=== PATIENT | female | born 2000 | race Caucasian/White ===

== ENCOUNTER 2022-10-07 17:35 | Outpatient (CLI) | payer OTHER, SELFPAY ==
[2022-10-07 18:28] LABS: Basophils Percent Auto 0.2 % (0.2-1.2); Eosinophils Absolute Auto 0.1 K/mm3 (0-0.3); Eosinophils Percent Auto 0.8 % (0-4.4); Hematocrit 35.5 % (37.0-47.0); Hemoglobin 11.7 g/dL (12.0-15.0); Immature Granulocyte Absolute 0.01 K/mm3 (0.00-0.031); Immature Granulocyte Percent A 0.1 % (0-0.5); Immature Platelet Fraction Pct 14.6 % (0.9-11.2); Lymphocytes Absolute Auto 1.67 K/mm3 (0.9-3.2); Lymphocytes Percent Auto 18.5 % (18.3-44.2); Mean Corpuscular Hemoglobin 28.5 pg (26-34); Mean Corpuscular Volume 86.6 fl (80-100); Mean Platelet Volume 12.7 fl (7.4-10.4); Monocytes Absolute Auto 0.4 K/mm3 (0.1-0.6); Monocytes Percent Auto 4.1 % (2.6-8.5); Neutrophils Absolute Auto 6.9 K/mm3 (1.3-6.7); Neutrophils Percent Auto 76.3 % (45.5-73.1); Platelet Count Result 244 k/mm3 (150-375)
[2022-10-07 19:10] LABS: HIV 1/2 Ab P24 Ag Result Negative (Negative)
[2022-10-07 19:22] LABS: Rubella IgG Antibody 7.4 IU/ML
[2022-10-07 19:32] LABS: Ovalocytes 1+ (NORMAL); Platelet Estimate Adequate (Adequate); Schistocytes None Seen (NORMAL)
[2022-10-09 14:00] LABS: Rapid Plasma Reagin Non-Reactive (NonReactive)
[2022-10-13 15:20] LABS: CMV IgG Antibody <0.60 U/mL (<0.60)
== END 2022-10-07 17:36 | disposition home or self-care (01) ==
LOC: ANHLAB 17:37
PROVIDERS: PCP Pediatrics; Visit Provider Student in an Organized Health Care Education/Training Program
DX: N94.89 Other specified conditions associated with female genital organs and menstrual cycle (principal)
CPT/HCPCS: 36415; 84702; 85025; 85055; 86592; 86644; 86703; 86747; 86762; 86787; 86850; 86900; 86901; 87077; 87086; 87088; G0432

== ENCOUNTER 2022-12-08 18:13 | Inpatient (IN) | payer OTHER, SELFPAY ==
[2022-12-08] VITALS (34 sets, daily range): BP systolic 101–115; BP diastolic 58–75; PULSE 45–160; TEMP 36.2–36.6; O2SAT 86–100; BMI 28.3
--- NOTE | ~2022-12-08 | US_ITS ---
EXAMINATION: US OB limited DATE: 12/08/2022 19:22 INDICATION: Assess viability. demise TECHNIQUE: Real-time ultrasound of the pelvis was performed. COMPARISON: None. FINDINGS: There is a single fetus in vertex presentation, longitudinal lie. The placenta is anterior. Cervix n ot confidently visualized. No heart motion detected. The amniotic fluid index is subjectively l ow. IMPRESSION: No heart motion detected, consistent with demise. Reviewed, dictated and finalized at location K.
[2022-12-08 20:09] LABS: Basophils Percent Auto 0.1 % (0.2-1.2); Eosinophils Percent Auto 0.1 % (0-4.4); Hemoglobin 11.2 g/dL (12.0-15.0); Immature Granulocyte Absolute 0.04 K/mm3 (0.00-0.031); Immature Granulocyte Percent A 0.3 % (0-0.5); Lymphocytes Absolute Auto 1.75 K/mm3 (0.9-3.2); Lymphocytes Percent Auto 12.7 % (18.3-44.2); Mean Corpuscular HGB Conc 32.9 g/dl (32-36); Mean Corpuscular Hemoglobin 28.9 pg (26-34); Mean Corpuscular Volume 87.9 fl (80-100); Mean Platelet Volume 11.9 fl (7.4-10.4); Monocytes Absolute Auto 0.6 K/mm3 (0.1-0.6); Monocytes Percent Auto 4.3 % (2.6-8.5); Neutrophils Absolute Auto 11.4 K/mm3 (1.3-6.7); Neutrophils Percent Auto 82.5 % (45.5-73.1); Platelet Count Result 338 k/mm3 (150-375); Red Blood Count 3.87 M/mm3 (4.2-5.4); Red Cell Distribution Width 13.2 % (11.5-14.5); White Blood Count 13.8 K/mm3 (4.5-10.0)
[2022-12-08 21:13] LABS: Free T4 Free Thyroxine 1.13 ng/mL (0.78-2.19)
[2022-12-08] MEDS: miSOPROStol 200 MCG TABLET 600 MCG VAGINAL (21:13)
[2022-12-08 21:26] LABS: Rubella IgG Antibody 5.9 IU/ML
[2022-12-08] MEDS: fentaNYL CITRATE INJ (*CRX) 100 MCG/2 ML VIAL 50 MCG IV PUSH (23:18)
[2022-12-08 23:38] LABS: Hemoglobin A1C 4.8 % (<5.7)
[2022-12-09] VITALS (149 sets, daily range): BP systolic 74–128; BP diastolic 34–86; PULSE 61–109; RESP 12; TEMP 36.3–37.7; O2SAT 95–100
[2022-12-09] MEDS: miSOPROStol 200 MCG TABLET 400 MCG VAGINAL ×3 (01:20→09:46)
--- NOTE | 2022-12-09 01:34 | WPDANESEPP ---
Anes - Eval Pre Procedure Procedure: labor epidural Date/Time: 12/09/22 01:34 Surgeon: negin Preop Diagnosis: pain during labor Pre Op Diagnosis: demise Patient Data Age: 22 Gender: F Height: 1.6 m Weight: 72.7 kg Last Vital Signs Temp 37.1 C 12/09/22 01:24 Pulse 83 12/09/22 01:31 BP 107/69 12/09/22 01:31 Pulse Ox 100 12/08/22 23:19 O2 Del Method Room Air 12/08/22 19:01 Allergies Allergy/AdvReac Type Severity Reaction Status Date / Time No Known Allergies Allergy Verified 12/08/22 20:26 Home Medications Medication Instructions Recorded Confirmed Type prenat.vits,chanda,odg-daah-vvmdr 1 tablet PO DAILY 09/02/22 12/08/22 History escitalopram oxalate 5 mg tablet 5 mg PO DAILY 10/09/22 12/08/22 History (Lexapro) Laboratory Tests 12/08/22 12/08/22 12/08/22 18:40 18:41 18:42 WBC 13.8 H K/mm3 (4.5-10.0) RBC 3.87 L M/mm3 (4.2-5.4) Hgb 11.2 L g/dL (12.0-15.0) Hct 34.0 L % (37.0-47.0) MCV 87.9 fl (80-100) MCH 28.9 pg (26-34) MCHC 32.9 g/dl (32-36) RDW 13.2 % (11.5-14.5) Plt Count 338 k/mm3 (150-375) MPV 11.9 H fl (7.4-10.4) Immature Gran % (Auto) 0.3 % (0-0.5) Neut % (Auto) 82.5 H % (45.5-73.1) Lymph % (Auto) 12.7 L % (18.3-44.2) [place] % (Auto) 4.3 % (2.6-8.5) Eos % (Auto) 0.1 % (0-4.4) Baso % (Auto) 0.1 L % (0.2-1.2) Lymph # (Auto) 1.75 K/mm3 (0.9-3.2) [place] # (Auto) 0.6 K/mm3 (0.1-0.6) Eos # (Auto) 0.0 K/mm3 (0-0.3) Baso # (Auto) 0.0 K/mm3 (0.0-0.1) Abs Immat Gran (auto) 0.04 H K/mm3 (0.00-0.031) Absolute Neuts (auto) 11.4 H K/mm3 (1.3-6.7) Absolute Nucleated RBC 0.0 K/mm3 (0.0-0.012) Nucleated RBC % 0.0 % (0.0-0.2) LA PTT Screen Pending dRVVT Screen Pending dRVVT Additional Test Pending Lupus Anticoag Interp Pending Hemoglobin A1c 4.8 % (<5.7) TSH 2.000 uIU/mL (0.465-4.680) Free T4 1.13 ng/mL (0.78-2.19) Urine Opiates Screen Pending Urine Methadone Screen Pending Ur Barbiturates Screen Pending Ur Phencyclidine Scrn Pending Ur Amphetamine Screen Pending U Benzodiazepines Scrn Pending Urine Cocaine Screen Pending U Cannabinoids Screen Pending Beta-2-GPI IgG Ab Pending Beta-2-GPI IgA Ab Beta-2-GPI IgM Ab Phosphatidylserine Ab Phosphatidylserine IgG Phosphatidylserine IgA Phosphatidylserine IgM Anti-Cardiolipin IgG Ab Pending Anti-Cardiolipin IgA Ab Pending Anti-Cardiolipin IgM Ab Pending RPR CMV IgG Ab CMV IgM Ab HSV I Specific Ab Pending HSV II Specific Ab Pending Parvovirus B19 IgG Intp Pending Parvovirus B19 IgM Intp Pending Rubella IgG Antibody 5.9 L IU/ML (10 - ) Toxoplasma IgG Ab Pending Toxoplasma IgM Ab Add Miscellaneous Test Blood Type A Positive Antibody Screen Negative 12/08/22 12/08/22 12/08/22 18:42 18:42 18:42 WBC RBC Hgb Hct MCV MCH MCHC RDW Plt Count MPV Immature Gran % (Auto) Neut % (Auto) Lymph % (Auto) [place] % (Auto) Eos % (Auto) Baso % (Auto) Lymph # (Auto) [place] # (Auto) Eos # (Auto) Baso # (Auto) Abs Immat Gran (auto) Absolute Neuts (auto) Absolu
[2022-12-09 01:46] LABS: Amphetamine Screen Urine Negative (Negative); Barbiturate Screen Urine Negative (Negative); Benzodiazepines Screen Urine Negative (Negative); Cannabinoid Screen Urine Negative (Negative); Cocaine Screen Urine Negative (Negative); Methadone Screen Urine Negative (Negative); Opiate Screen Urine Negative (Negative); Phencyclidine Screen Urine Negative (Negative)
[2022-12-09] MEDS: LOPERAMIDE HCL 2 MG CAPSULE PO (04:09)
[2022-12-09] MEDS: LACTATED RINGERS 1,000 ML 125 ML IV CONT ×3 (04:22→09:46)
[2022-12-09] MEDS: fentaNYL CITRATE INJ (*CRX) 100 MCG/2 ML VIAL 50 MCG IV PUSH ×2 (08:32→11:08)
[2022-12-09] MEDS: ESCITALOPRAM OXALATE 5 MG TABLET PO (09:45)
[2022-12-09] MEDS: OXYTOCIN 30 UNITS/NS 500 ML 30 UNITS/500 ML BAG 999 UNITS IV CONT (12:05)
[2022-12-09 12:12] LABS: Rapid Plasma Reagin Non-Reactive (NonReactive)
--- NOTE | 2022-12-09 12:14 | WPDHPUPDATE1 ---
History and Physical Update Update Date/Time: 12/09/22 12:14 History and Physical has been reviewed, including an updated exam of the patient. There are NO changes in the patient's condition. Risks, benefits, and alternatives have been discussed and questions answered. Patient agrees to proceed with procedure.
--- NOTE | 2022-12-09 12:14 | WPDOBADMIT ---
Obstetrics - Admit Note Admission Note: record reviewed. No pertinent additions to the history and/or any subsequent changes in the physical findings that are not consistent with the expected course of the were found. Additions to the history and/or subsequent changes in the physical findings follow. None.
--- NOTE | 2022-12-09 12:14 | PM.OBPRVD ---
OB - Delivery Note Procedure Events: Other (IUFD) Induction method: Per Misoprostol Protocol Delivery augmentation: Rupture of Membranes Delivery monitor: External Uterine Route of delivery: Episiotomy description: None Laceration Description: None Specimen: Yes Quantitative Blood Loss (ml): 300 Anesthesia type: Epidural Disposition: Floor Complications: none Narrative: Patient prepped draped usual manner for this procedure. Maternal expulsive efforts readily delivered vertex in the wrist baby delivered without difficulty. Cord was clamped cut. Further expulsive efforts delivered placenta intact. Uterus was well contracted. There was no significant bleeding. No vaginal or vulvar lacerations or tears. At this point the procedure was terminated. Baby Weeks of gestation at delivery: 25 gender: Female presentation: vertex Placenta delivery description: Spontaneous AMG Delivery Billing Delivery Delivery: Delivery Charge
--- NOTE | 2022-12-09 12:18 | PM.OBDSVD ---
DS: Admitting Diagnosis Discharge Date 12/09/2022 Admitting Diagnosis 25 week intrauterine demise DS: Discharge Diagnosis Discharge Diagnosis (1) demise, greater than 22 weeks, antepartum, single gestation: Code(s): O36.4XX0 - Maternal care for intrauterine , not applicable or unspecified Status: Acute OB - DS: Summary OB Procedures : None OB Procedures Intrapartum: Spontaneous Vag Delivery OB Procedures: : None Time Spent with Patient Time attestation: Total time spent providing and/or coordinating discharge services: DS: Data Data Completed and Pending Labs on day of discharge: Labs from last 24 hours 12/08/22 12/08/22 12/08/22 18:43 18:42 18:42 WBC RBC Hgb Hct MCV MCH MCHC RDW Plt Count MPV Immature Gran % (Auto) Neut % (Auto) Lymph % (Auto) [place] % (Auto) Eos % (Auto) Baso % (Auto) Lymph # (Auto) [place] # (Auto) Eos # (Auto) Baso # (Auto) Abs Immat Gran (auto) Absolute Neuts (auto) Absolute Nucleated RBC Nucleated RBC % LA PTT Screen dRVVT Screen dRVVT Additional Test Lupus Anticoag Interp Hemoglobin A1c TSH Free T4 Urine Opiates Screen Urine Methadone Screen Ur Barbiturates Screen Ur Phencyclidine Scrn Ur Amphetamine Screen U Benzodiazepines Scrn Urine Cocaine Screen U Cannabinoids Screen Beta-2-GPI IgG Ab Beta-2-GPI IgA Ab Pending Beta-2-GPI IgM Ab Pending Pending Phosphatidylserine Ab Pending Phosphatidylserine IgG Pending Phosphatidylserine IgA Pending Phosphatidylserine IgM Pending Anti-Cardiolipin IgG Ab Pending Anti-Cardiolipin IgA Ab Pending Anti-Cardiolipin IgM Ab Pending RPR Non-reactive CMV IgG Ab Pending CMV IgM Ab Pending HSV I Specific Ab HSV II Specific Ab Parvovirus B19 IgG Intp Parvovirus B19 IgM Intp Rubella IgG Antibody Toxoplasma IgG Ab Toxoplasma IgM Ab Pending Add Miscellaneous Test Pending Blood Type Antibody Screen 12/08/22 12/08/22 12/08/22 18:42 18:42 18:41 WBC 13.8 H RBC 3.87 L Hgb 11.2 L Hct 34.0 L MCV 87.9 MCH 28.9 MCHC 32.9 RDW 13.2 Plt Count 338 MPV 11.9 H Immature Gran % (Auto) 0.3 Neut % (Auto) 82.5 H Lymph % (Auto) 12.7 L [place] % (Auto) 4.3 Eos % (Auto) 0.1 Baso % (Auto) 0.1 L Lymph # (Auto) 1.75 [place] # (Auto) 0.6 Eos # (Auto) 0.0 Baso # (Auto) 0.0 Abs Immat Gran (auto) 0.04 H Absolute Neuts (auto) 11.4 H Absolute Nucleated RBC 0.0 Nucleated RBC % 0.0 LA PTT Screen Pending dRVVT Screen Pending dRVVT Additional Test Pending Lupus Anticoag Interp Pending Hemoglobin A1c 4.8 TSH 2.000 Free T4 1.13 Urine Opiates Screen Urine Methadone Screen Ur Barbiturates Screen Ur Phencyclidine Scrn Ur Amphetamine Screen U Benzodiazepines Scrn Urine Cocaine Screen U Cannabinoids Screen Beta-2-GPI IgG Ab Pending Pending Beta-2-GPI IgA Ab Pending Beta-2-GPI IgM Ab Phosphatidylserine Ab Phosphatidylserine IgG Phosphatidylserine IgA Phosphatidylserine IgM Anti-Cardiolipin IgG Ab Pending Anti-Cardiolipin IgA Ab Pending Anti-Cardiolipin IgM Ab Pending RPR CMV IgG Ab CMV IgM Ab HSV I Specific Ab Pending HSV II Specific Ab Pending Parvovirus B19 IgG Intp Pending Parvovirus B19 IgM Intp Pending Rubella IgG Antibody Toxoplasma IgG Ab Toxoplasma IgM Ab Add Miscellaneous Test Blood Type Antibody Screen 12/08/22 18:40 WBC RBC Hgb Hct MCV MCH MCHC RDW Plt Count MPV Immature Gran % (Auto) Neut % (Auto) Lymph % (Auto) [place] % (Auto) Eos % (Auto) Baso % (Auto) Lymph # (Auto) [place] # (Auto) Eos # (Auto) Baso # (Auto) Abs Immat Gran (auto) Absolute Neuts (auto) Absolute Nucleated RBC Nucleated RBC %
[2022-12-09] MEDS: ACETAMINOPHEN 325 MG TABLET 650 MG (16:33)
--- NOTE | 2022-12-09 16:40 | PC.NURSE ---
1315: RN called [facility] to inform them of demise. RN informed [facility] that the patient wants an autopsy done. [facility] gave RN the release. 1339: RN called [facility]. RN was notified that patient is not eligible for donation and RN received a release from [facility] with the reference number of [id number].
--- NOTE | 2022-12-09 17:14 | PC.NURSE ---
1710: [place] [facility] [place]
--- NOTE | 2022-12-09 17:19 | PC.NURSE ---
171: RN called Gorge Martinez home to inform him of demise. Gorge stated he will contact mom morning.
--- NOTE | 2022-12-09 17:23 | PC.NURSE ---
1723: RN informed patient and family about SHARE program. Patient not intrested at this time but understands she may and can change her mind.
--- NOTE | 2022-12-09 18:27 | PC.NURSE ---
1800: ERICA Hedrick reported off to ERICA Murdock.
--- NOTE | 2022-12-09 19:15 | PC.NURSE ---
1914 Pt sleeping, respirations even.
--- NOTE | 2022-12-09 20:29 | PC.NURSE ---
2028 Pt sleeping, respirations even.
[2022-12-12 04:37] LABS: Lupus dRVVT Screen 35 sec (<=45); PTT-LA Screen 31 sec (<=40)
[2022-12-12 17:07] LABS: Toxoplasma IgG Antibody <7.20 IU/mL (<7.20)
[2022-12-12 19:31] LABS: Toxoplasma IgM Antibody <8.00 AU/mL (<8.00)
[2022-12-14 11:36] LABS: Anti Cardio Antibody IgM <2.0 MPL-U/mL (<20.0); Anti Cardiolipin Antibody IgA <2.0 APL-U/mL (<20.0); Anti Cardiolipin Antibody IgG <2.0 GPL-U/mL (<20.0); PS/PT AB IgG <9 U (<=30); PS/PT AB IgM 11 U (<=30)
[2022-12-14 11:36] LABS: Anti Cardio Antibody IgM <2.0 MPL-U/mL (<20.0); Anti Cardiolipin Antibody IgA <2.0 APL-U/mL (<20.0); Anti Cardiolipin Antibody IgG <2.0 GPL-U/mL (<20.0)
[2022-12-15 12:36] LABS: CMV IgG Antibody <0.60
[2022-12-16 10:58] LABS: CMV IgM Antibody <30.00 AU/mL (<30.00)
== END 2022-12-09 22:01 | disposition home or self-care (01) | DRG 560 ==
PROVIDERS: Admitting Provider Obstetrics & Gynecology; PCP Pediatrics; Visit Provider Obstetrics & Gynecology
DX: O36.4XX0 Maternal care for intrauterine death, not applicable or unspecified (principal); Z37.1 Single stillbirth; Z3A.25 25 weeks gestation of pregnancy
CPT/HCPCS: 36415; 76815; 80307; 83036; 84439; 84443; 85025; 85613; 85730; 86146; 86147; 86592; 86644; 86645; 86695; 86696; 86747; 86762; 86777; 86850; 86900; 86901; 88264; 88305; 88307; 88313; A9270; J2590; J2795; J3010; J7120

== ENCOUNTER 2024-08-30 17:44 | Emergency (ER) | payer OTHER, SELFPAY ==
--- NOTE | 2024-08-30 17:46 | ED.URI ---
HPI - URI/Sore Throat General Chief Complaint: Ear Stated Complaint: Ears Irritation/Sore Throat Time Seen by Provider: 08/30/24 17:46 Source: patient Mode of arrival: ambulatory Limitations: no limitations History of Present Illness HPI Narrative: Ria is a 23-year-old female patient presenting to the clinic today with complaints of ear pain and sore throat x1 week. She reports she has had some nasal congestion and slight cough. No known fever. Denies any shortness of breath or chest pain. Related Data Allergies Allergy/AdvReac Type Severity Reaction Status Date / Time No Known Allergies Allergy Verified 08/30/24 17:51 Review of Systems Review of Systems: Pertinent positives per HPI. Patient denies any fever, chills, rash, headache, visual changes, dizziness, shortness of breath, chest pain, palpitations, nausea, vomiting, diarrhea, constipation, abdominal pain, or any urinary issues. PMFSH Past Medical History Medical History demise (12/09/22) Depression Suppression of menses Family History Family History Grandparent Diabetes mellitus Acute myocardial infarction Hypertension Social History Social History Smoking status: Never smoker Alcohol intake: never Substance use: never Lack of Transportation: No Lack of Food: Never True Current Housing: I Have Housing Concerned About Future Housing: No Difficulty Paying Gas/Electric Bills: No Difficulty Paying for Meds: No Currently Unemployed: No Education: High School Diploma/GED Difficulty w/ Childcare or Family Care: No Living arrangements: with family Occupation/Education: student Gender identity (if verbalized by the patient): Female Sexual Orientation (if Verbalized by the Patient): Straight or Heterosexual Spiritual care concerns: No Comments At the time of my signature, I reviewed and agree with the nursing past medical, surgical, social, and family history. There is no relevant family history pertinent to the patient complaint. Exam Narrative: General: Well-developed, well nourished, in no apparent distress Head: Normocephalic, atraumatic Eyes: Pupils equally round and reactive to light bilaterally, EOM intact, sclera and conjunctive clear, no discharge, lids normal Ears: TMs intact and congested, ear canals clear, no drainage, grossly hearing normal. Nose: Nares patent, clear discharge, no inflammation, no sinus tenderness. Mouth: Oral pharynx red with bilateral tonsillar enlargement with white exudate to bilateral tonsils, good dentition, MMM. Neck: Supple, trachea midline, enlargement of anterior cervical nodes, no thyroid masses or goiter palpable. Cardio: Regular rate and rhythm, s1 and s2 normal, no murmur appreciated. Resp: Clear to auscultation bilaterally, no rhonchi, rales, wheezing or rubs Course Course Emergency Course: Portions of this record may have been created with voice recognition software. Level of Care: Express Care Visit Vital Signs Vital signs: Vital signs reviewed MDM - URI/Sore Throat MDM Narrative Medical decision making narrative: At the time of visit patient is resting comfortably on the exam table. Patient appears to be nontoxic. Labs: Strep test was performed and negative in the clinic today. [place] testing was positive. Plan: I suspect patient has mono. Prescription for viscous lidocaine was sent to the pharmacy. Supportive measures were discussed with the patient and they voiced understanding discharge instructions and agrees to treatment plan. Return precautions reviewed Differential Diagnosis Differential diagnosis: Likely upper respiratory infection, otitis media, sinusitis, viral infection, bronchitis, influenza, pharyngitis and other (COVID) Discharge Plan Discharge Clinical Impression: Infectious mononucleosis Qualifiers: Infectious mononucleosis etiology: unspecified organism Infectious mononucleosis complication: without complication Qualified Code(s): B27.90 - Infectious mononucleosis, unspecified without complication Patient Disposition: Home Condition: Stable Instructions: Antibiotic Form, Mononucleosis (ED) Additional Instructions: Strep test is negative in the clinic today. [place] testing was positive Take medications as prescribed-viscous lidocaine Increase fluids and stay well hydrated Tylenol/motrin for pain/fever Flonase and OTC antihistamines as directed Vicks vapor rub to open sinuses Sinus rinses for congestion Cepacol spray, cough drops, throat lozenges, warm tea with honey/lemon, gargle salt water to soothe throat BRAT diet for diarrhea Clear liquids x 24 hours then advance as tolerated for nausea/vomiting Go to the ED if you develop a worsening in your condition- high fever not controlled by Tylenol or Motrin, dehydration, weakness, lethargy, shortness of breath, or chest pain. Follow up with your PCP in 3-5 days if symptoms persist. Patient Language: Cyp[place] Prescriptions: New lidocaine HCl [Lidocaine Viscous] 2 % solution 1 applic mucous membrane QID PRN (Reason: pain) 7 Days Qty: 100 1RF Follow-up/Referrals: PHYSICIAN,WEB RETAILER [Primary Care Provider] - Stand Alone Forms: Work/School Release IP Time of Disposition: 18:14 Quality NIHSS Nursing Documentation ED NIHSS nursing documentation: reviewed/agree
[2024-08-30 17:55] VITALS: BP 124/77; PULSE 124; RESP 18; TEMP 37; O2SAT 100
[2024-08-30 18:20] LABS: EDSTREPNEGPOS1 Negative (Negative)
[2024-08-30 18:27] LABS: EDMONONEGPOS Positive (Negative)
== END 2024-08-30 18:25 | disposition home or self-care (01) ==
PROVIDERS: Emergency Provider Nurse Practitioner Family
DX: B27.90 Infectious mononucleosis, unspecified without complication (principal)
CPT/HCPCS: 36416; 86308; 87081; 87880; 99213; G0463